=== PATIENT | female | born 1965 | race Two or more races ===

== ENCOUNTER 2018-11-18 02:08 | Emergency (ER) | payer MEDICAID ==
[~2018-11-18] VITALS: Ht 157.5 cm; Wt 75.0 kg
[2018-11-18] MEDS ORDERED: KETOROLAC 15MG/ML VIAL IV ONE (05:00)
[2018-11-18] MEDS ORDERED: METHYLPREDNISOLONE SOD SUCC 40 MG/ML VIAL IV ONE (05:15)
[2018-11-18 05:31] LABS: BASOPHILS % 1.3 % (0.0-2.0); EOSINOPHILS % 1.7 % (0.0-5.0); HEMATOCRIT. 42.2 % (36.0-48.0); HEMOGLOBIN. 13.7 g/dL (12.0-16.0); LYMPHOCYTES % 37.2 % (20.0-50.0); MEAN CORPUSCULAR HEMOGLOBIN 27.3 pg (28.0-32.0); MEAN CORPUSCULAR VOLUME 84.2 fL (81.0-99.0); MONOCYTES % 6.3 % (2.0-8.0); NEUTROPHILS % 53.5 % (40.0-76.0); PLATELET 156 x1000/uL (130-400); RED BLOOD CELL COUNT 5.01 mill/uL (4.2-5.4); RED CELL DISTRIBUTION WIDTH 14.7 % (11.6-14.6)
[2018-11-18 05:53] LABS: CHLORIDE 113 mEq/L (98-107)
[2018-11-18 06:17] VITALS: BP 138/80
== END 2018-11-18 07:00 | disposition home or self-care (01) ==
LOC: ER 02:08
DX: L93.2 Other local lupus erythematosus (principal); R51 Headache; F17.200 Nicotine dependence, unspecified, uncomplicated
CPT/HCPCS: 36415; 70450; 80053; 85025; 96374; 99284; J1885; J2920